=== PATIENT | male | born 1975 | race Caucasian/White ===

== ENCOUNTER 2023-02-12 16:45 | Inpatient (IN) | payer BC ==
[~2023-02-12] VITALS: Ht 170.2 cm; Wt 91.7 kg
[2023-02-12] MEDS ORDERED: GLIP5TAB8 PO (17:01)
[2023-02-12] MEDS ORDERED: JANU100T14 PO (17:01)
[2023-02-12] MEDS ORDERED: NOXI1TAB PO (17:01)
[2023-02-12] MEDS ORDERED: MED REC IN PROGRESS XX SCH (17:35)
[2023-02-12] MEDS: glipiZIDE (GLUCOTROL) 5 MG TAB PO SCH (18:00)
[2023-02-12 18:05] LABS: BASO # 0.1 10^3/uL (0.0-0.2); BASO % 0.5 % (0.0-1.0); EOS # 0.1 10^3/uL (0.0-0.5); EOS % 1.1 % (0.0-3.0); LYMPH # 3.1 10^3/uL (1.5-5.0); LYMPH % 26.4 % (24.0-44.0); MEAN CORPUSCULAR HEMOGLOBIN 30.1 pg (27.0-33.0); MEAN CORPUSCULAR VOLUME 88.3 fl (80.0-96.0); MONO # 0.7 10^3/uL (0.0-0.8); MONO % 6.1 % (2.0-8.0); NEUTROPHILS # 7.7 10^3/uL (1.5-8.5); NEUTROPHILS % 65.5 % (36.0-66.0); PLATELET COUNT, AUTOMATED 224 10^3/uL (150-450); RED BLOOD COUNT 5.32 10^6/uL (4.30-6.10); WHITE BLOOD COUNT 11.7 10^3/uL (4.0-10.0)
[2023-02-12 18:11] LABS: INR 0.95; PROTHROMBIN TIME 12.3 SECONDS (12.5-14.5)
[2023-02-12 18:12] LABS: PARTIAL THROMBOPLASTIN TIME 38.4 SECONDS (24.8-34.2)
[2023-02-12 18:28] LABS: ALBUMIN 3.7 G/DL (3.2-5.2); ALKALINE PHOSPHATASE 84 U/L (46-116); ALT/SGPT 34 U/L (7.0-40); AST/SGOT 12 U/L (<34); BILIRUBIN,DIRECT 0.1 MG/DL (<0.4); BILIRUBIN,TOTAL 0.4 MG/DL (0.3-1.2); BLOOD UREA NITROGEN 19 MG/DL (9-23); CALCIUM LEVEL 9.5 MG/DL (8.5-10.1); CARBON DIOXIDE LEVEL 30 MMOL/L (20-31); CHLORIDE LEVEL 102 MMOL/L (98-107); CREATININE FOR GFR 0.77 MG/DL (0.70-1.30); GLOMERULAR FILTRATION RATE > 60.0 (>60); GLUCOSE, FASTING 161 MG/DL (60-100); POTASSIUM SERUM 3.7 MMOL/L (3.5-5.1); SODIUM LEVEL 139 MMOL/L (136-145); TOTAL PROTEIN 7.2 G/DL (5.7-8.2)
[2023-02-12 18:31] LABS: THYROID STIMULATING HORMONE 1.775 uIU/ML (0.55-4.78)
[2023-02-12] MEDS ORDERED: HOME MED LIST COMPLETE! XX SCH (18:55)
[2023-02-12 18:56] LABS: RSV AMPLIFICATION NEGATIVE (NEGATIVE)
[2023-02-12] MEDS ORDERED: GLUCOSE 4GM CHEW TABLET PO PRN (20:05)
[2023-02-12] MEDS ORDERED: GLUCAGON INJ 1MG VIAL SC PRN (20:05)
[2023-02-12] MEDS ORDERED: DEXTROSE 50% 50ML SYRINGE IV PRN (20:05)
[2023-02-12 21:15] LABS: HIV 1&2 SCREEN NEGATIVE (NEGATIVE)
[2023-02-12] MEDS: INSULIN LISPRO (NovoLOG) PER UNIT SC SCH (21:40)
[2023-02-12] MEDS: DOCUSATE SODIUM 100MG CAPSULE PO SCH (21:40)
[2023-02-12 23:10] VITALS: BP 136/89; TEMP 97.5; O2SAT 99
[2023-02-13] VITALS (15 sets, daily range): BP systolic 113–143; BP diastolic 71–90; TEMP 97.3–97.8; O2SAT 96–98
[2023-02-13] MEDS: methylPREDNISolone 1,000 MG, VIAL MATE ADAPTER 1 EACH in NS 250 ML IV SCH ×2 (00:11→17:36)
[2023-02-13] MEDS ORDERED: IMMUNE GLOBULIN 10% 40 GM in IV 1 EA IV ONE (01:00)
[2023-02-13] MEDS: ACETAMINOPHEN TAB 650MG DOSE (2X325MG) PO PRN ×2 (02:10→08:50)
[2023-02-13 06:32] LABS: BASO % 0.2 % (0.0-1.0); EOS % 0.1 % (0.0-3.0); HEMATOCRIT 44.5 % (42.0-52.0); HEMOGLOBIN 15.6 g/dl (13.5-17.5); LYMPH % 10.6 % (24.0-44.0); MEAN CORPUSCULAR HEMOGLOBIN 30.5 pg (27.0-33.0); MEAN CORPUSCULAR HGB CONC 35.1 g/dl (32.0-36.5); MEAN CORPUSCULAR VOLUME 86.9 fl (80.0-96.0); MONO # 0.1 10^3/uL (0.0-0.8); NEUTROPHILS # 8.1 10^3/uL (1.5-8.5); NEUTROPHILS % 87.7 % (36.0-66.0); PLATELET COUNT, AUTOMATED 182 10^3/uL (150-450); RED BLOOD COUNT 5.12 10^6/uL (4.30-6.10); WHITE BLOOD COUNT 9.2 10^3/uL (4.0-10.0)
[2023-02-13 07:05] LABS: BLOOD UREA NITROGEN 22 MG/DL (9-23); CALCIUM LEVEL 8.7 MG/DL (8.5-10.1); CARBON DIOXIDE LEVEL 25 MMOL/L (20-31); CHLORIDE LEVEL 101 MMOL/L (98-107); CREATININE FOR GFR 0.73 MG/DL (0.70-1.30); GLOMERULAR FILTRATION RATE > 60.0 (>60); GLUCOSE, FASTING 288 MG/DL (60-100); POTASSIUM SERUM 4.3 MMOL/L (3.5-5.1); SODIUM LEVEL 135 MMOL/L (136-145)
[2023-02-13] MEDS: INSULIN LISPRO (NovoLOG) PER UNIT SC SCH ×4 (08:48→20:37)
[2023-02-13] MEDS: DOCUSATE SODIUM 100MG CAPSULE PO SCH ×3 (08:49→20:37)
[2023-02-13] MEDS: GABAPENTIN 100 MG CAP PO SCH ×4 (08:49→20:37)
[2023-02-13] MEDS: SITagliptin 50 MG TAB (JANUVIA) PO SCH (08:49)
[2023-02-13] MEDS: PANTOPRAZOLE 40MG TAB (PROTONIX) PO SCH ×2 (08:50→08:54)
[2023-02-13 16:02] LABS: APPEARANCE, CSF CLEAR (CLEAR); COLOR, CSF COLORLESS (COLORLESS); CSF TUBE# CELL CNT TUBE 1
[2023-02-13 16:08] LABS: CSF TUBE# TP TUBE 2; TOTAL PROTEIN,CSF 202.8 MG/DL (15-45)
[2023-02-13 16:09] LABS: APPEARANCE, CSF CLEAR (CLEAR); COLOR, CSF COLORLESS (COLORLESS); CSF TUBE# CELL CNT TUBE 4
[2023-02-13 16:11] LABS: CSF TUBE# GLU TUBE 2
[2023-02-13] MEDS: glipiZIDE (GLUCOTROL) 5 MG TAB PO SCH (17:36)
[2023-02-13] MEDS ORDERED: IMMUNE GLOBULIN 10% 40 GM in IV 1 EA IV SCH (20:00)
[2023-02-13] MEDS: IMMUNE GLOBULIN 10% 10 GM in IV 1 EA IV SCH (20:50)
[2023-02-13] MEDS: IMMUNE GLOBULIN 10% 20 GM in IV 1 EA IV SCH (21:07)
[2023-02-13] MEDS: IMMUNE GLOBULIN 10% 5 GM in IV 1 EA IV SCH (21:09)
[2023-02-14] VITALS (8 sets, daily range): BP systolic 128–143; BP diastolic 75–95; TEMP 97.5–98.1; O2SAT 94–96
[2023-02-14 06:25] LABS: BASO % 0.2 % (0.0-1.0); HEMATOCRIT 43.8 % (42.0-52.0); HEMOGLOBIN 15.4 g/dl (13.5-17.5); LYMPH # 0.9 10^3/uL (1.5-5.0); LYMPH % 7.2 % (24.0-44.0); MEAN CORPUSCULAR HEMOGLOBIN 30.2 pg (27.0-33.0); MEAN CORPUSCULAR HGB CONC 35.2 g/dl (32.0-36.5); MEAN CORPUSCULAR VOLUME 85.9 fl (80.0-96.0); MONO # 0.3 10^3/uL (0.0-0.8); MONO % 2.2 % (2.0-8.0); NEUTROPHILS # 10.8 10^3/uL (1.5-8.5); NEUTROPHILS % 89.8 % (36.0-66.0); PLATELET COUNT, AUTOMATED 205 10^3/uL (150-450)
[2023-02-14 06:50] LABS: BLOOD UREA NITROGEN 22 MG/DL (9-23); CALCIUM LEVEL 9.1 MG/DL (8.5-10.1); CARBON DIOXIDE LEVEL 24 MMOL/L (20-31); CHLORIDE LEVEL 103 MMOL/L (98-107); CREATININE FOR GFR 0.66 MG/DL (0.70-1.30); GLOMERULAR FILTRATION RATE > 60.0 (>60); GLUCOSE, FASTING 262 MG/DL (60-100); SODIUM LEVEL 137 MMOL/L (136-145)
[2023-02-14] MEDS: SITagliptin 50 MG TAB (JANUVIA) PO SCH (08:15)
[2023-02-14] MEDS: PANTOPRAZOLE 40MG TAB (PROTONIX) PO SCH (08:15)
[2023-02-14] MEDS: INSULIN LISPRO (NovoLOG) PER UNIT SC SCH ×4 (08:15→20:58)
[2023-02-14] MEDS: DOCUSATE SODIUM 100MG CAPSULE PO SCH ×3 (08:15→21:00)
[2023-02-14] MEDS: GABAPENTIN 100 MG CAP PO SCH ×4 (08:15→21:00)
[2023-02-14] MEDS ORDERED: LIDOCAINE 5% (LIDODERM) PATCH TD PRN (15:50)
[2023-02-14 17:40] LABS: CA15-3 ANTIGEN 7.8 U/ML (<32.4)
[2023-02-14] MEDS: methylPREDNISolone 1,000 MG, VIAL MATE ADAPTER 1 EACH in NS 250 ML IV SCH (17:40)
[2023-02-14 18:09] LABS: CMV QUANT DNA PCR (PLASMA) Negative (Negative)
[2023-02-14] MEDS: IMMUNE GLOBULIN 10% 10 GM in IV 1 EA IV SCH (20:48)
[2023-02-14] MEDS: IMMUNE GLOBULIN 10% 20 GM in IV 1 EA IV SCH (22:39)
[2023-02-14] MEDS: IMMUNE GLOBULIN 10% 5 GM in IV 1 EA IV SCH (23:41)
[2023-02-15] VITALS (10 sets, daily range): BP systolic 124–168; BP diastolic 75–98; TEMP 97.2–97.9; O2SAT 94–98
[2023-02-15 06:10] LABS: BASO % 0.1 % (0.0-1.0); HEMATOCRIT 44.2 % (42.0-52.0); HEMOGLOBIN 15.4 g/dl (13.5-17.5); LYMPH # 0.8 10^3/uL (1.5-5.0); LYMPH % 5.9 % (24.0-44.0); MEAN CORPUSCULAR HEMOGLOBIN 30.4 pg (27.0-33.0); MEAN CORPUSCULAR HGB CONC 34.8 g/dl (32.0-36.5); MEAN CORPUSCULAR VOLUME 87.2 fl (80.0-96.0); MONO # 0.2 10^3/uL (0.0-0.8); MONO % 1.5 % (2.0-8.0); NEUTROPHILS # 12.5 10^3/uL (1.5-8.5); NEUTROPHILS % 92.1 % (36.0-66.0); PLATELET COUNT, AUTOMATED 191 10^3/uL (150-450); RED BLOOD COUNT 5.07 10^6/uL (4.30-6.10); WHITE BLOOD COUNT 13.6 10^3/uL (4.0-10.0)
[2023-02-15 06:31] LABS: BLOOD UREA NITROGEN 28 MG/DL (9-23); CALCIUM LEVEL 9.1 MG/DL (8.5-10.1); CARBON DIOXIDE LEVEL 26 MMOL/L (20-31); CHLORIDE LEVEL 102 MMOL/L (98-107); CREATININE FOR GFR 0.68 MG/DL (0.70-1.30); GLOMERULAR FILTRATION RATE > 60.0 (>60); GLUCOSE, FASTING 284 MG/DL (60-100); POTASSIUM SERUM 4.1 MMOL/L (3.5-5.1); SODIUM LEVEL 134 MMOL/L (136-145)
[2023-02-15] MEDS: DOCUSATE SODIUM 100MG CAPSULE PO SCH ×2 (08:23→21:00)
[2023-02-15] MEDS: SITagliptin 50 MG TAB (JANUVIA) PO SCH (08:23)
[2023-02-15] MEDS: GABAPENTIN 100 MG CAP PO SCH ×2 (08:23→16:00)
[2023-02-15] MEDS: ENOXAPARIN 40MG/0.4ML SYRINGE (J1650 PER 10MG) SC SCH (08:24)
[2023-02-15] MEDS: PANTOPRAZOLE 40MG TAB (PROTONIX) PO SCH (08:24)
[2023-02-15] MEDS: INSULIN LISPRO (NovoLOG) PER UNIT SC SCH ×4 (08:26→21:22)
[2023-02-15] MEDS: methylPREDNISolone 1,000 MG, VIAL MATE ADAPTER 1 EACH in NS 250 ML IV SCH (12:23)
[2023-02-15] MEDS: IMMUNE GLOBULIN 10% 10 GM in IV 1 EA IV SCH (20:53)
[2023-02-15] MEDS: IMMUNE GLOBULIN 10% 20 GM in IV 1 EA IV SCH (22:59)
[2023-02-16] VITALS (10 sets, daily range): BP systolic 132–156; BP diastolic 83–94; TEMP 96.6–97.9; O2SAT 93–97
[2023-02-16] MEDS: IMMUNE GLOBULIN 10% 5 GM in IV 1 EA IV SCH ×2 (00:06→23:56)
[2023-02-16 06:03] LABS: BASO % 0.1 % (0.0-1.0); HEMATOCRIT 41.5 % (42.0-52.0); HEMOGLOBIN 14.5 g/dl (13.5-17.5); LYMPH # 0.9 10^3/uL (1.5-5.0); LYMPH % 7.7 % (24.0-44.0); MEAN CORPUSCULAR HGB CONC 34.9 g/dl (32.0-36.5); MEAN CORPUSCULAR VOLUME 85.7 fl (80.0-96.0); MONO # 0.7 10^3/uL (0.0-0.8); MONO % 5.7 % (2.0-8.0); NEUTROPHILS # 9.7 10^3/uL (1.5-8.5); NEUTROPHILS % 85.8 % (36.0-66.0); PLATELET COUNT, AUTOMATED 189 10^3/uL (150-450); RED BLOOD COUNT 4.84 10^6/uL (4.30-6.10); WHITE BLOOD COUNT 11.3 10^3/uL (4.0-10.0)
[2023-02-16 06:10] LABS: BLOOD UREA NITROGEN 25 MG/DL (9-23); CALCIUM LEVEL 8.6 MG/DL (8.5-10.1); CARBON DIOXIDE LEVEL 25 MMOL/L (20-31); CHLORIDE LEVEL 103 MMOL/L (98-107); CREATININE FOR GFR 0.66 MG/DL (0.70-1.30); GLOMERULAR FILTRATION RATE > 60.0 (>60); GLUCOSE, FASTING 246 MG/DL (60-100); SODIUM LEVEL 135 MMOL/L (136-145)
[2023-02-16] MEDS: DOCUSATE SODIUM 100MG CAPSULE PO SCH ×2 (09:00→21:42)
[2023-02-16] MEDS: ENOXAPARIN 40MG/0.4ML SYRINGE (J1650 PER 10MG) SC SCH (09:00)
[2023-02-16] MEDS: INSULIN LISPRO (NovoLOG) PER UNIT SC SCH ×4 (09:16→21:43)
[2023-02-16] MEDS: PANTOPRAZOLE 40MG TAB (PROTONIX) PO SCH (09:17)
[2023-02-16] MEDS: SITagliptin 50 MG TAB (JANUVIA) PO SCH (09:17)
[2023-02-16] MEDS: methylPREDNISolone 1,000 MG, VIAL MATE ADAPTER 1 EACH in NS 250 ML IV SCH (12:26)
[2023-02-16] MEDS ORDERED: PRED10TA2 PO (17:33)
[2023-02-16] MEDS: IMMUNE GLOBULIN 10% 10 GM in IV 1 EA IV SCH (21:04)
[2023-02-16] MEDS: IMMUNE GLOBULIN 10% 20 GM in IV 1 EA IV SCH (22:52)
[2023-02-17 01:00] VITALS: BP 157/95; TEMP 97; O2SAT 95
[2023-02-17 05:33] VITALS: BP 157/95; TEMP 97.7; O2SAT 94
[2023-02-17 06:18] LABS: BASO % 0.1 % (0.0-1.0); HEMATOCRIT 43.7 % (42.0-52.0); HEMOGLOBIN 15.3 g/dl (13.5-17.5); LYMPH # 0.9 10^3/uL (1.5-5.0); LYMPH % 8.8 % (24.0-44.0); MEAN CORPUSCULAR VOLUME 85.7 fl (80.0-96.0); MONO # 0.5 10^3/uL (0.0-0.8); MONO % 4.9 % (2.0-8.0); NEUTROPHILS # 8.8 10^3/uL (1.5-8.5); NEUTROPHILS % 85.7 % (36.0-66.0); PLATELET COUNT, AUTOMATED 194 10^3/uL (150-450); WHITE BLOOD COUNT 10.3 10^3/uL (4.0-10.0)
[2023-02-17 06:40] LABS: BLOOD UREA NITROGEN 27 MG/DL (9-23); CALCIUM LEVEL 8.9 MG/DL (8.5-10.1); CARBON DIOXIDE LEVEL 26 MMOL/L (20-31); CHLORIDE LEVEL 101 MMOL/L (98-107); CREATININE FOR GFR 0.68 MG/DL (0.70-1.30); GLOMERULAR FILTRATION RATE > 60.0 (>60); GLUCOSE, FASTING 249 MG/DL (60-100); POTASSIUM SERUM 4.2 MMOL/L (3.5-5.1); SODIUM LEVEL 135 MMOL/L (136-145)
[2023-02-17] MEDS: ENOXAPARIN 40MG/0.4ML SYRINGE (J1650 PER 10MG) SC SCH (09:00)
[2023-02-17] MEDS: DOCUSATE SODIUM 100MG CAPSULE PO SCH (09:00)
[2023-02-17] MEDS: INSULIN LISPRO (NovoLOG) PER UNIT SC SCH (09:14)
[2023-02-17] MEDS: SITagliptin 50 MG TAB (JANUVIA) PO SCH (09:15)
[2023-02-17] MEDS: PANTOPRAZOLE 40MG TAB (PROTONIX) PO SCH (09:15)
[2023-02-19 16:08] LABS: CSFLYM10 Absent (.); CSFLYM11 Absent (.); CSFLYM12 Negative (.); CSFLYM14 Absent (.); CSFLYM15 Absent (.); CSFLYM16 Absent (.); CSFLYM17 Negative (.); CSFLYM2 Absent (.); CSFLYM3 Absent (.); CSFLYM4 Absent (.); CSFLYM5 Absent (.); CSFLYM6 Present (.); CSFLYM7 Present (.); CSFLYM8 Absent (.); CSFLYM9 Absent (.); LYME PCR FOR BODY FLUID Negative (Negative)
== END 2023-02-17 10:15 | disposition home or self-care (01) | DRG 48 ==
LOC: M ED 16:45 → EDBD 16:45 → M ED INP 20:02 → M MS5PR 23:09
PROVIDERS: ADMIT Internal Medicine Nephrology; ATTEND Internal Medicine
PROC: 009U3ZX Drainage of Spinal Canal, Percutaneous Approach, Diagnostic (ICD-10-PCS; principal; 2023-02-13)
DX: G83.4 Cauda equina syndrome (principal); E11.65 Type 2 diabetes mellitus with hyperglycemia; E11.42 Type 2 diabetes mellitus with diabetic polyneuropathy; G95.81 Conus medullaris syndrome; Z79.84 Long term (current) use of oral hypoglycemic drugs; Z87.891 Personal history of nicotine dependence; R26.89 Other abnormalities of gait and mobility; T38.0X5A Adverse effect of glucocorticoids and synthetic analogues, initial encounter